=== PATIENT | male | born 1975 | race Caucasian/White ===

== ENCOUNTER 2017-05-25 04:45 | Emergency (ER) | payer MEDICARE ==
[~2017-05-25] VITALS: Ht 180.3 cm; Wt 79.5 kg
[~2017-05-25 04:45] MED LIST: OLAN5TAB PO; PROP20TA5 PO; VENL75CA PO
[2017-05-25 05:01] VITALS: BP 141/91; PULSE 71; RESP 16; O2SAT 98
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
[2017-05-25] MEDS ORDERED: TdaP Vaccine 0.5 mL Inj IM ONE (06:25)
[2017-05-25 08:15] LABS: Mean Corpuscular Volume 89.8 fL (81-100)
[2017-05-25 08:16] LABS: BASOPHILS % (AUTO) 0.5 % (0-3); EOSINOPHILS % (AUTO) 1.2 % (0-5); MONOCYTES % (AUTO) 9.1 % (4-12); Mean Corpuscular Hemoglobin 30.8 pg (27.0-35.0); NEUTROPHILS % (AUTO) 61.4 % (40-74)
[2017-05-25] MEDS ORDERED: Venlafaxine XR 75 mg ER24 Capsule PO ONE (13:45)
[2017-05-25] MEDS ORDERED: Amphetamines (Mixed) 10 mg Tablet PO ONE (14:00)
[2017-05-25] MEDS ORDERED: PARoxetine 20 mg Tablet PO ONE (14:00)
[2017-05-25 15:19] VITALS: BP 113/77; PULSE 95; RESP 18; O2SAT 95
== END 2017-05-25 15:25 | disposition other institution (70) ==
LOC: SED 04:45 → EDBD 04:45 → EDUNIT# 04:45 → SED 15:25
DX: S61.215A Laceration without foreign body of left ring finger without damage to nail, initial encounter (principal); W26.0XXA Contact with knife, initial encounter; Y93.9 Activity, unspecified; Y92.9 Unspecified place or not applicable; Y99.8 Other external cause status; Z87.891 Personal history of nicotine dependence; Z23 Encounter for immunization